=== PATIENT | female | born 1965 | race Caucasian/White ===

== ENCOUNTER → 2016-10-14 | Outpatient (CLI) | payer OTHER | LOC: BRMIMAGING 07:43 | PROVIDERS: ATTEND Family Medicine | DX: Z12.31 Encounter for screening mammogram for malignant neoplasm of breast (principal) | CPT/HCPCS: G0202 ==

== ENCOUNTER → 2018-03-02 | Outpatient (CLI) | payer OTHER | LOC: BRMIMAGING 11:31 | PROVIDERS: ATTEND Family Medicine | DX: Z12.31 Encounter for screening mammogram for malignant neoplasm of breast (principal) ==